=== PATIENT | male | born 1960 | race Caucasian/White ===

== ENCOUNTER 2024-10-08 09:08 | Outpatient (CLI) | payer OTHER, SELFPAY ==
--- NOTE | 2024-10-08 09:23 | XRR_ITS ---
PROCEDURE INFORMATION: Exam: XR Right Hand Exam date and time: 10/08/2024 9:40 AM Age: 64 years old Clinical indication: Pain; Hand; Right; Additional info: FX 4th metacarpal TECHNIQUE: Imaging protocol: Radiologic exam of the right hand. Views: 3 or more views. COMPARISON: No relevant prior studies available. FINDINGS: Bones/joints: There is mild bowing deformity of the 5th metacarpal that appears secondary to old healed boxer's type fracture. There is an indistinct bony radiolucency midshaft 4th metacarpal measuring 1.3 cm inconclusive for bone lesion. There is no fracture detected. There is an old ununited fracture involving the 3rd distal phalanx with mild overriding and malalignment of the fracture components. There are mild degenerative changes involving the 1st and 2nd MCP joints. There is deformity of the distal ulna with 1 cm circumscribed bone cyst present. Soft tissues: Unremarkable. XR/XR hand RT min 3V* [id number] IMPRESSION: 1. No acute bony abnormalities. 2. Findings is inconclusive for small radiolucent bone lesion mid shaft 4th metacarpal which could be further assessed on CT MRI examination of the right hand. 3. Additional nonemergent findings as above.
== END 2024-10-08 09:09 | disposition home or self-care (01) ==
PROVIDERS: Family Provider Nurse Practitioner; PCP Nurse Practitioner Family; Visit Provider Nurse Practitioner Family
DX: M79.641 Pain in right hand (principal); R93.6 Abnormal findings on diagnostic imaging of limbs; M19.041 Primary osteoarthritis, right hand; M85.641 Other cyst of bone, right hand
CPT/HCPCS: 73130